=== PATIENT | male | born 1975 | race Two or more races ===

== ENCOUNTER 2018-02-02 09:07 | Emergency (ER) | payer MEDICAID ==
[~2018-02-02] VITALS: Ht 172.7 cm; Wt 93.0 kg
[2018-02-02 09:23] VITALS: BP 124/87
[2018-02-02] MEDS ORDERED: bacitracin 15gm ointment TP ONE (09:45)
== END 2018-02-02 10:01 | disposition home or self-care (01) ==
LOC: ER 09:07
DX: S81.811D Laceration without foreign body, right lower leg, subsequent encounter (principal); X58.XXXD Exposure to other specified factors, subsequent encounter
CPT/HCPCS: 99284

== ENCOUNTER 2019-06-12 10:49 | Inpatient (IN) | payer MEDICAID, OTHER ==
[~2019-06-12] VITALS: Ht 170.2 cm; Wt 95.5 kg
[2019-06-12 11:37] LABS: BASOPHILS % (AUTO) 0.5 % (0-1); EOSINOPHILS % (AUTO) 0 % (0-6); HEMATOCRIT 44.4 % (42.0-52.0); HEMOGLOBIN 15.3 g/dl (14.0-17.9); LYMPHOCYTES # (AUTO) 0.6 X10'3 (1.1-4.8); LYMPHOCYTES % (AUTO) 11.4 % (21-51); MEAN CORPUSCULAR HEMOGLOBIN 28.8 PG (27.0-31.0); MEAN CORPUSCULAR HGB CONC 34.5 g/dL (33.0-36.5); MEAN CORPUSCULAR VOLUME 83.6 FL (78-98); MEAN PLATELET VOLUME 8.9 FL (7.4-10.4); MONOCYTES # (AUTO) 0.8 X10'3 (0-0.9); MONOCYTES % (AUTO) 15.3 % (2-12); NEUTROPHILS # (AUTO) 3.6 X10'3 (1.8-7.7); NEUTROPHILS % (AUTO) 72.8 % (42-75); PLATELET COUNT 148 X10'3 (140-440); RED BLOOD COUNT 5.31 X10'6 (4.70-6.10); RED CELL DISTRIBUTION WIDTH 12.6 % (11.5-14.5); WHITE BLOOD COUNT 4.9 X10'3 (4.5-11.0)
[2019-06-12 11:48] LABS: CLARITY,URINE CLEAR (Clear); COLOR,URINE YELLOW (Yellow); GLUCOSE, URINE NEGATIVE (Neg); KETONES,URINE NEGATIVE (Neg); LEUKOCYTE ESTERASE ,URINE NEGATIVE (Neg); NITRITES, URINE NEGATIVE (Neg); OCCULT BLOOD,URINE SMALL (Neg); PH,URINE 5.5 (4.8-8.0); PROTEIN,URINE 100 mg/dl (Neg); UA COLLECTION TYPE CLN CATCH MIDSTREAM; UROBILINOGEN,URINE 0.2 E.U/dL (0.2-1.0)
[2019-06-12 11:48] LABS: PARTIAL THROMBOPLASTIN TIME 30 SECONDS (22-32)
[2019-06-12 11:50] LABS: ALANINE AMINOTRANSFERASE 123 U/L (12-78); ALBUMIN 3.6 G/DL (3.4-5.0); ALBUMIN/GLOBULIN RATIO 0.8 (1.1-1.5); ALKALINE PHOSPHATASE 86 IU/L (46-116); ANION GAP 10 (8-16); ASPARTATE AMINO TRANSFERASE 88 U/L (10-37); BILIRUBIN,TOTAL 0.4 MG/DL (0.1-1.0); BLOOD UREA NITROGEN 15 MG/DL (7-18); CALCIUM 8.3 MG/DL (8.5-10.1); CHLORIDE 98 MMOL/L (99-107); CREATININE 1.25 MG/DL (0.60-1.10); GLUCOSE 151 MG/DL (70-104); POTASSIUM 3.5 MMOL/L (3.5-5.1); SODIUM 133 MMOL/L (135-145); TOTAL CARBON DIOXIDE 25.1 MMOL/L (24-32); TOTAL PROTEIN 8.3 G/DL (6.4-8.2); eGFR 63 ML/MIN
[2019-06-12 11:58] LABS: BACTERIA,URINE FEW /HPF (Neg); FINE GRANULAR CAST 0-3 /LPF (NEGATIVE); HYALINE CASTS 0-3 /LPF (NEGATIVE); MUCUS STRANDS MODERATE /LPF (Neg); SQUAMOUS EPITHELIAL CELL,UR FEW /LPF (FEW)
[2019-06-12 11:59] LABS: WBC CLUMPS,URINE FEW /HPF (NEGATIVE)
[2019-06-12] MEDS ORDERED: normal saline 1000ML IV soln IV ONE (12:25)
[2019-06-12] MEDS ORDERED: acetaminophen 325mg tablet PO ONE (12:30)
[2019-06-12] MEDS ORDERED: CefTRIAXone/D5W-Rocephin 1gm 50 ML IV ONE (13:55)
[2019-06-12] MEDS ORDERED: PRAV40TA3 PO (14:36)
[2019-06-12] MEDS ORDERED: LISI10TA4 PO (14:36)
[2019-06-12] MEDS ORDERED: METF-438 PO (14:36)
[2019-06-12] MEDS ORDERED: GLIM4TAB4 PO (14:36)
[2019-06-12] MEDS ORDERED: mag hydrox/Alum hydrox/simeth 30ml oral suspension PO PRN (14:45)
[2019-06-12] MEDS ORDERED: magnesium hydroxide 30ml (MOM) UD suspension PO PRN (14:45)
[2019-06-12] MEDS ORDERED: ondansetron/PF 4mg/2ml inj IV PRN (14:45)
[2019-06-12] MEDS ORDERED: lisinopril 10 MG tablet PO SCH ×2 (14:55→15:01)
[2019-06-12 16:05] VITALS: BP 112/62
--- NOTE | 2019-06-12 16:05 | NUR ---
Patient in room [facility] 4013. I have received report from JOSH PIMENTEL and had the opportunity to ask questions and assume patient care.
[2019-06-12] MEDS: normal saline 1000ml 1,000 ML IV SCH (16:39)
[2019-06-12] MEDS: metroNIDAZOLE-Flagyl 500mg/NS 100 ML IV SCH (17:44)
[2019-06-12 18:00] VITALS: BP 100/55
--- NOTE | 2019-06-12 18:20 | NUR ---
Problems reprioritized. Patient report given, questions answered & plan of care reviewed with JOSH PIMENTEL.
--- NOTE | 2019-06-12 19:00 | NUR ---
Patient in room [facility] 4013. I have received report from Kana PIMENTEL and had the opportunity to ask questions and assume patient care.
[2019-06-12] MEDS: metFORMIN 500mg tablet PO SCH (20:57)
[2019-06-12] MEDS: heparin, porcine 5000 units/ml vial SQ SCH (20:59)
[2019-06-12 22:00] VITALS: BP 108/61
[2019-06-13] MEDS: metroNIDAZOLE-Flagyl 500mg/NS 100 ML IV SCH ×3 (00:15→16:04)
[2019-06-13] MEDS: normal saline 1000ml 1,000 ML IV SCH ×3 (00:42→21:45)
[2019-06-13] MEDS: acetaminophen 325mg tablet PO PRN (01:38)
[2019-06-13 06:00] VITALS: BP 103/60
[2019-06-13 06:43] LABS: ALBUMIN 2.8 G/DL (3.4-5.0); ANION GAP 10 (8-16); BLOOD UREA NITROGEN 10 MG/DL (7-18); BUN/CREATININE RATIO 10.9 (5.4-32.0); CALCIUM 7.2 MG/DL (8.5-10.1); CHLORIDE 103 MMOL/L (99-107); CREATININE 0.92 MG/DL (0.60-1.10); GLUCOSE 83 MG/DL (70-104); POTASSIUM 3.6 MMOL/L (3.5-5.1); SODIUM 136 MMOL/L (135-145); TOTAL CARBON DIOXIDE 23.4 MMOL/L (24-32); eGFR 90 ML/MIN
[2019-06-13 06:52] LABS: BASOPHILS % (AUTO) 0.5 % (0-1); EOSINOPHILS % (AUTO) 0.1 % (0-6); MEAN CORPUSCULAR HEMOGLOBIN 28.8 PG (27.0-31.0); MONOCYTES # (AUTO) 0.4 X10'3 (0-0.9); NEUTROPHILS # (AUTO) 1.8 X10'3 (1.8-7.7); PLATELET COUNT 113 X10'3 (140-440); RED CELL DISTRIBUTION WIDTH 12.7 % (11.5-14.5); WHITE BLOOD COUNT 3.2 X10'3 (4.5-11.0)
[2019-06-13 06:54] LABS: HEMATOCRIT 39.4 % (42.0-52.0); HEMOGLOBIN 13.5 g/dl (14.0-17.9); LYMPHOCYTES % (AUTO) 31.3 % (21-51); MEAN CORPUSCULAR HGB CONC 34.1 g/dL (33.0-36.5); MEAN CORPUSCULAR VOLUME 84.3 FL (78-98); MEAN PLATELET VOLUME 8.8 FL (7.4-10.4); MONOCYTES % (AUTO) 11.8 % (2-12); NEUTROPHILS % (AUTO) 56.3 % (42-75); RED BLOOD COUNT 4.68 X10'6 (4.70-6.10)
[2019-06-13] MEDS ORDERED: CefTRIAXone/D5W-Rocephin 1gm 50 ML IV SCH (08:00)
[2019-06-13] MEDS ORDERED: atorvastatin 10mg tablet PO SCH (08:00)
[2019-06-13] MEDS: metFORMIN 500mg tablet PO SCH ×2 (08:19→19:47)
[2019-06-13] MEDS: heparin, porcine 5000 units/ml vial SQ SCH ×2 (08:24→19:48)
[2019-06-13 10:00] VITALS: BP 103/64
--- NOTE | 2019-06-13 13:21 | NUR ---
DM consult: Pt with A1c seen at bedside. Pt reports he was seeing his MD q month however now sees them q 3 months and takes his DM meds per rx. Pt recently returned from a trip to [facility] and pt reports he doesn't manage his DM during those visits. Pt states he still takes his DM medications however does not check his blood sugars or monitor his CHO intake. Pt reports A1c in the 7's prior to vacation. Pt with no questions at this time. Written and verbal protein and DM educations with referral to outpatient DM class and RD contact information provided. Pt currently on a full liquid diet, states he isn't eating much because of the high sugar and because he gets diarrhea quickly after eating. D/w dietary to send carb controlled items on full liquid meal trays. Will continue to follow. Addendum: 06/13/19 at [address] Amended: Links added.
[2019-06-13] MEDS ORDERED: diphenoxylate/atropine tablet (Lomotil) PO PRN (14:30)
[2019-06-13 17:00] VITALS: BP 100/55
--- NOTE | 2019-06-13 18:30 | NUR ---
Patient in room [facility]TH[facility] 4013. I have received report from Nieves PIMENTEL and had the opportunity to ask questions and assume patient care.
--- NOTE | 2019-06-13 18:38 | NUR ---
Report to Noa PIMENTEL
--- NOTE | 2019-06-13 18:47 | NUR ---
Sent page to Dr. Shona Aragon [id number]- 44 yo male that came 06/12 for N/V, sepsis after trip to [place]. Asking for sleep med because couldn't sleep last night. Thank you, Noa [phone]
[2019-06-13 22:00] VITALS: BP 110/65
[2019-06-14] MEDS: acetaminophen 325mg tablet PO PRN (00:05)
[2019-06-14] MEDS: metroNIDAZOLE-Flagyl 500mg/NS 100 ML IV SCH ×2 (00:06→09:13)
--- NOTE | 2019-06-14 06:04 | NUR ---
Problems reprioritized. Patient report given, questions answered & plan of care reviewed with Nieves PIMENTEL.
--- NOTE | 2019-06-14 06:10 | NUR ---
Patient in room [facility] 4013. I have received report from COMPA PIMENTEL and had the opportunity to ask questions and assume patient care.
[2019-06-14 06:43] VITALS: BP 103/67
[2019-06-14 06:43] LABS: BASOPHILS % (AUTO) 0.6 % (0-1); EOSINOPHILS % (AUTO) 0.3 % (0-6); HEMOGLOBIN 13.6 g/dl (14.0-17.9); LYMPHOCYTES # (AUTO) 1.4 X10'3 (1.1-4.8); LYMPHOCYTES % (AUTO) 41.1 % (21-51); MEAN CORPUSCULAR HEMOGLOBIN 28.2 PG (27.0-31.0); MEAN CORPUSCULAR HGB CONC 34.1 g/dL (33.0-36.5); MEAN CORPUSCULAR VOLUME 82.7 FL (78-98); MEAN PLATELET VOLUME 8.6 FL (7.4-10.4); MONOCYTES # (AUTO) 0.4 X10'3 (0-0.9); MONOCYTES % (AUTO) 10.6 % (2-12); NEUTROPHILS # (AUTO) 1.6 X10'3 (1.8-7.7); NEUTROPHILS % (AUTO) 47.4 % (42-75); PLATELET COUNT 132 X10'3 (140-440); RED BLOOD COUNT 4.84 X10'6 (4.70-6.10); RED CELL DISTRIBUTION WIDTH 12.6 % (11.5-14.5); WHITE BLOOD COUNT 3.3 X10'3 (4.5-11.0)
[2019-06-14 07:03] LABS: ALBUMIN 2.9 G/DL (3.4-5.0); ANION GAP 12 (8-16); BLOOD UREA NITROGEN 8 MG/DL (7-18); BUN/CREATININE RATIO 9.4 (5.4-32.0); CALCIUM 7.5 MG/DL (8.5-10.1); CHLORIDE 103 MMOL/L (99-107); CREATININE 0.85 MG/DL (0.60-1.10); GLUCOSE 76 MG/DL (70-104); POTASSIUM 3.5 MMOL/L (3.5-5.1); SODIUM 138 MMOL/L (135-145); TOTAL CARBON DIOXIDE 22.8 MMOL/L (24-32); eGFR > 90 ML/MIN
[2019-06-14 07:26] LABS: PLATELET ESTIMATE DECREASED; TOTAL CELLS COUNTED 100
[2019-06-14] MEDS: metFORMIN 500mg tablet PO SCH (08:00)
--- NOTE | 2019-06-14 08:00 | NUR ---
PT BLOOD SUGAR WAS 62. PT REFUSED ANY TREATMENT BUT AGREED TO ICE CREAM. 15 MINUTES AFTER EATING ICE CREAM BLOOD SUGAR WAS 71. WILL CONTINUE TO MONITOR.
--- NOTE | 2019-06-14 10:00 | NUR ---
Patient disconnected his own iv, wants to take his own meds at home.
[2019-06-14] MEDS ORDERED: FLU VACC QS 2019-20 (6 MOS UP) 60 MCG/0.5 ML VIAL IMVAC ONE (11:00)
[2019-06-14] MEDS ORDERED: LEVO750T21 PO (11:10)
[2019-06-14] MEDS ORDERED: METR-159 PO (11:10)
== END 2019-06-14 12:10 | disposition home or self-care (01) | DRG 872 ==
LOC: ER 10:50 → ED HOLD 14:42 → EDBEDREQ 15:10 → ORTHO 4S 16:07
PROVIDERS: ADMIT Family Medicine; ATTEND Family Medicine
DX: A41.9 Sepsis, unspecified organism (principal); E87.1 Hypo-osmolality and hyponatremia; A09 Infectious gastroenteritis and colitis, unspecified; A01.00 Typhoid fever, unspecified; N17.9 Acute kidney failure, unspecified; E11.9 Type 2 diabetes mellitus without complications; E78.5 Hyperlipidemia, unspecified; I10 Essential (primary) hypertension
CPT/HCPCS: 36415; 71045; 80048; 80053; 81001; 82948; 83036; 83605; 84145; 85025; 85610; 85730; 87040; 87081; 87088; 87328; 87329; 87336; 87502; 87503; 96365; 99285; G0378; J0696; J1644; J2405; J3490; J7030

== ENCOUNTER 2020-09-08 18:43 | Emergency (ER) | payer MEDICAID ==
[~2020-09-08] VITALS: Ht 170.2 cm; Wt 105.5 kg
[~2020-09-08 18:43] MED LIST: GLIM4TAB7 PO; LISI10TA4 PO; METF-438 PO; PRAV40TA3 PO
[2020-09-08 19:17] LABS: CLARITY,URINE CLOUDY (Clear); COLOR,URINE BROWN (Yellow); GLUCOSE, URINE NEGATIVE (Neg); KETONES,URINE TRACE mg/dl (Neg); LEUKOCYTE ESTERASE ,URINE TRACE (Neg); NITRITES, URINE NEGATIVE (Neg); OCCULT BLOOD,URINE LARGE (Neg); PROTEIN,URINE 30 mg/dl (Neg); UA COLLECTION TYPE VOIDED
[2020-09-08 19:23] LABS: CAL OXALATE CRYSTALS 1+ /HPF (NEGATIVE)
[2020-09-08 19:26] LABS: BACTERIA,URINE FEW /HPF (Neg); MUCUS STRANDS NONE SEEN /LPF (Neg); RBC,URINE TNTC /HPF (0-2); WBC,URINE 0-4 /HPF (0-4)
[2020-09-08 19:27] LABS: SQUAMOUS EPITHELIAL CELL,UR FEW /LPF (FEW)
[2020-09-08 21:00] LABS: BASOPHILS # (AUTO) 0.1 X10'3 (0-0.2); BASOPHILS % (AUTO) 0.6 % (0-1); EOSINOPHILS # (AUTO) 0.4 X10'3 (0-0.9); EOSINOPHILS % (AUTO) 4.4 % (0-6); HEMATOCRIT 45.2 % (42.0-52.0); HEMOGLOBIN 15.1 g/dl (14.0-17.9); LYMPHOCYTES # (AUTO) 2.9 X10'3 (1.1-4.8); LYMPHOCYTES % (AUTO) 31.2 % (21-51); MEAN CORPUSCULAR HEMOGLOBIN 28.3 PG (27.0-31.0); MEAN CORPUSCULAR HGB CONC 33.5 g/dL (33.0-36.5); MEAN CORPUSCULAR VOLUME 84.4 FL (78-98); MEAN PLATELET VOLUME 8.4 FL (7.4-10.4); MONOCYTES # (AUTO) 0.6 X10'3 (0-0.9); MONOCYTES % (AUTO) 6.3 % (2-12); NEUTROPHILS # (AUTO) 5.4 X10'3 (1.8-7.7); NEUTROPHILS % (AUTO) 57.5 % (42-75); PLATELET COUNT 244 X10'3 (140-440); RED BLOOD COUNT 5.35 X10'6 (4.70-6.10); WHITE BLOOD COUNT 9.4 X10'3 (4.5-11.0)
[2020-09-08 21:11] LABS: ALANINE AMINOTRANSFERASE 39 U/L (12-78); ALBUMIN 3.8 G/DL (3.4-5.0); ALKALINE PHOSPHATASE 74 IU/L (46-116); ANION GAP 10 (8-16); ASPARTATE AMINO TRANSFERASE 18 U/L (10-37); BILIRUBIN,TOTAL 0.3 MG/DL (0.1-1.0); BLOOD UREA NITROGEN 18 MG/DL (7-18); BUN/CREATININE RATIO 18.9 (5.4-32.0); CALCIUM 8.4 MG/DL (8.5-10.1); CHLORIDE 102 MMOL/L (99-107); CREATININE 0.95 MG/DL (0.60-1.10); GLUCOSE 151 MG/DL (70-104); POTASSIUM 3.8 MMOL/L (3.5-5.1); SODIUM 140 MMOL/L (135-145); TOTAL CARBON DIOXIDE 27.8 MMOL/L (24-32); TOTAL PROTEIN 7.8 G/DL (6.4-8.2); eGFR 87 ML/MIN
--- NOTE | 2020-09-08 21:57 | NUR ---
US OF ABDOMEN COMPLETED, PT AWAITING DISPOSITION.
--- NOTE | 2020-09-08 21:58 | NUR ---
DR SCHMITZ AT BEDSIDE TO UPDATED THAT SHE HAS SPOKEN TO UROLOGIST. UPDATED ON OTHER RESULTS. PT REPORTS NO PAIN AND HAS STABLE VS.
[2020-09-08 22:19] VITALS: BP 104/62
== END 2020-09-08 22:22 | disposition home or self-care (01) ==
LOC: ER 18:43
DX: R31.9 Hematuria, unspecified (principal); I10 Essential (primary) hypertension; E11.9 Type 2 diabetes mellitus without complications; F17.200 Nicotine dependence, unspecified, uncomplicated; Z87.442 Personal history of urinary calculi; Z72.89 Other problems related to lifestyle; Z79.899 Other long term (current) drug therapy
CPT/HCPCS: 36415; 76775; 80053; 81001; 85025; 87088; 87491; 99284

== ENCOUNTER 2024-06-23 12:41 | Emergency (ER) | payer OTHER ==
[~2024-06-23] VITALS: Ht 170.2 cm; Wt 93.2 kg
[~2024-06-23 12:41] MED LIST changes: +LISI10TA27 PO; -LISI10TA4 PO
[2024-06-23 12:45] VITALS: BP 138/79; PULSE 99; TEMP 97.6; O2SAT 96
[2024-06-23] MEDS ORDERED: LIDO700A32 TD (13:28)
[2024-06-23] MEDS ORDERED: IBUP-1984 PO (13:28)
[2024-06-23] MEDS ORDERED: GABA100C PO (13:29)
[2024-06-23] MEDS: LIDOcaine 5% patch TP STA (13:51)
[2024-06-23 13:53] VITALS: RESP 16
[2024-06-24] MEDS ORDERED: LIDOcaine 5% patch TP SCH (08:00)
== END 2024-06-23 13:54 | disposition home or self-care (01) ==
LOC: ER 12:42
DX: M54.31 Sciatica, right side (principal); I10 Essential (primary) hypertension; E11.9 Type 2 diabetes mellitus without complications; Z79.899 Other long term (current) drug therapy
CPT/HCPCS: 99283